=== PATIENT | male | born 1970 | race Caucasian/White ===

== ENCOUNTER 2021-06-07 16:58 | Emergency (ER) | payer BC, OTHER ==
[~2021-06-07] VITALS: Ht 175.3 cm; Wt 100.2 kg
[~2021-06-07 16:58] MED LIST: ACET500; AMOX500 PO; Augmentin 875-1 EACH PO; IBUP400; PRAV20 PO
[2021-06-07] MEDS ORDERED: BENZ100A PO (18:02)
[2021-06-07] MEDS ORDERED: ONDA4ODT MM (18:02)
[2021-06-07] MEDS ORDERED: DEXA4 PO (18:02)
[2021-06-10] MEDS ORDERED: AZIT500 PO (14:14)
== END 2021-06-07 18:35 | disposition home or self-care (01) ==
LOC: ER 16:58
DX: U07.1 COVID-19 (principal); Z88.6 Allergy status to analgesic agent; E11.9 Type 2 diabetes mellitus without complications; Z79.899 Other long term (current) drug therapy
CPT/HCPCS: 99284; A9270; J1100

== ENCOUNTER → 2021-06-12 | Outpatient (CLI) | payer BC, OTHER ==
[~2021-06-12] MED LIST changes: +AZIT500 PO; +BENZ100A PO; +DEXA4 PO; +ONDA4ODT MM
[2021-06-12 09:12] LABS: BASOPHILS ABSOLUTE AUTO 0.01 K/mm3 (0.00-0.23); BASOPHILS PERCENT AUTO 0 % (0-2); EOSINOPHILS PERCENT AUTO 0 % (0-6); Hematocrit 48.5 % (37.0-53.0); Hemoglobin 16.1 g/dL (13.5-17.5); IMMATURE GRAN ABSOLUTE AUTO 0.07 K/mm3 (0.00-0.10); IMMATURE GRAN PERCENT AUTO 1 % (0-1); LYMPHOCYTES ABSOLUTE AUTO 0.86 K/mm3 (0.84-5.20); LYMPHOCYTES PERCENT AUTO 10 % (21-46); MONOCYTES ABSOLUTE AUTO 0.48 K/mm3 (0.16-1.47); MONOCYTES PERCENT AUTO 6 % (4-13); Mean Corpuscular HGB Conc 33.2 g/dL (31.5-36.5); Mean Corpuscular Volume 84 fL (80-100); Mean Platelet Volume 9.6 fL (9.1-12.4); NEUTROPHILS ABSOLUTE AUTO 7.31 K/mm3 (1.96-9.15); NEUTROPHILS PERCENT AUTO 84 % (41-73); Platelet Count 350 K/mm3 (150-400); RDW Coefficient Variation 13.6 % (11.7-14.2); Red Blood Cell Count 5.76 M/mm3 (4.30-5.90); White Blood Cell Count 8.73 K/mm3 (4.00-11.30)
[2021-06-12 09:21] LABS: Alanine Aminotransfer (ALT/SGP 198 U/L (12-78); Albumin, Blood 2.9 g/dL (3.4-5.0); Albumin/Globulin Ratio 0.5 (0.8-1.8); Alk Phos 120 U/L (40-126); Anion Gap 7 mmol/L (6-16); Aspartate Aminotrans (AST/SGOT 81 U/L (12-37); Bilirubin, Total 0.7 mg/dL (0.1-1.0); Blood Urea Nitrogen 20 mg/dL (8-24); Bun/Creatinine Ratio 17.1 (12.0-20.0); CO2, Blood 28 mmol/L (21-32); Calcium, Blood 8.7 mg/dL (8.5-10.1); Chloride, Blood 97 mmol/L (98-108); Creatinine, Blood 1.17 mg/dL (0.60-1.20); Globulin, Blood 5.4 g/dL (2.2-4.0); Glomerular Filtration Rate >60 (60-); Glucose, Blood 207 mg/dL (70-99); Potassium, Blood 4.8 mmol/L (3.5-5.5); Sodium, Blood 132 mmol/L (136-145); Total Protein, Blood 8.3 g/dL (6.4-8.2)
[2021-06-12 10:43] LABS: Troponin I <0.017 ng/mL (0.000-0.040)
== END | disposition home or self-care (01) ==
LOC: LAB SHORT 09:07 → LAB 09:07
PROVIDERS: Physician Assistant Surgical
DX: U07.1 COVID-19 (principal); R07.9 Chest pain, unspecified
CPT/HCPCS: 80053; 84484; 85025